=== PATIENT | female | born 1995 | race Caucasian/White ===

== ENCOUNTER 2021-08-22 21:29 | Emergency (ER) | payer OTHER ==
[~2021-08-22] VITALS: Ht 167.6 cm; Wt 72.6 kg
== END 2021-08-22 23:00 | disposition home or self-care (01) ==
LOC: ER 21:29
DX: S22.5XXA Flail chest, initial encounter for closed fracture (principal); S30.1XXA Contusion of abdominal wall, initial encounter; W18.39XA Other fall on same level, initial encounter; Y93.89 Activity, other specified; Y92.89 Other specified places as the place of occurrence of the external cause; Y99.8 Other external cause status